=== PATIENT | female | born 1970 | race Caucasian/White ===

== ENCOUNTER → 2024-01-19 07:53 | Outpatient (REF) | payer BC, SELFPAY | LOC: HWRAD 07:53 | PROVIDERS: ATTENDING PHYSICIAN Family Medicine | DX: Z87.891 Personal history of nicotine dependence (principal) | CPT/HCPCS: 71271 ==

== ENCOUNTER → 2024-02-04 08:45 | Outpatient (REF) | payer BC, SELFPAY | LOC: HWWDC 08:45 | PROVIDERS: ATTENDING PHYSICIAN Family Medicine | DX: Z12.31 Encounter for screening mammogram for malignant neoplasm of breast (principal) | CPT/HCPCS: 77063; 77067 ==